=== PATIENT | male | born 1990 | race Caucasian/White ===

== ENCOUNTER 2025-03-11 13:23 | Emergency (ER) | payer MEDICAID ==
[~2025-03-11] VITALS: Ht 175.3 cm; Wt 77.1 kg
[2025-03-11] MEDS ORDERED: KETOROLAC TROMETHAMINE 15 MG/ML VIAL ONE ×2 (15:08→15:13)
[2025-03-11] MEDS: KETOROLAC TROMETHAMINE 15 MG/ML VIAL IM ONE (15:20)
[2025-03-11] MEDS ORDERED: HYDR-4275 PO (15:25)
[2025-03-11] MEDS ORDERED: IBUP-1953 PO (15:25)
[2025-03-11] MEDS ORDERED: ACET-2030 PO (15:25)
[2025-03-11 15:40] VITALS: BP 118/70; TEMP 98.5; O2SAT 98
== END 2025-03-11 15:42 | disposition home or self-care (01) ==
LOC: ER 13:25
DX: S42.031A Displaced fracture of lateral end of right clavicle, initial encounter for closed fracture (principal); Y08.89XA Assault by other specified means, initial encounter; Y93.89 Activity, other specified; Y92.89 Other specified places as the place of occurrence of the external cause; Y99.8 Other external cause status
CPT/HCPCS: 99284; 96372; 73130; 73080; 73564; 73030; J1885